=== PATIENT | female | born 1985 | race Caucasian/White ===

== ENCOUNTER 2022-01-23 13:04 | Inpatient (IN) ==
[2022-01-23 13:56] LABS: Basophils % 0.4 %; Bilirubin,Urine Negative (Negative); Blood,Urine Moderate (Negative); Clarity,Urine Clear (Clear); Color,Urine Yellow (Yellow); Eosinophils % 0.4 %; Glucose,Urine (UA) Normal (Normal); Hematocrit 41.1 % (35.3-44.9); Hemoglobin 13.6 g/dL (11.5-15.4); Immature Granulocytes % 0.3 % (0-4); Ketones,Urine 20 mg/dL (Negative); Leukocyte Esterase,Urine Negative (Negative); Lymphocytes # 2.1 K/mcL (0.6-4.6); Lymphocytes % 26.5 %; Mean Corpuscular HGB Conc 33.1 g/dL (31.6-35.5); Mean Corpuscular Hemoglobin 28.7 pg (28.0-33.3); Mean Corpuscular Volume 86.7 fL (83.0-100.0); Mean Platelet Volume 9.9 fL (9.4-12.4); Monocytes # 0.6 K/mcL (0.0-1.3); Mucus,Urine Few per lpf (None-Few); Neutrophils # 5.1 K/mcL (1.6-8.9); Nitrite,Urine Negative (Negative); Platelet Count 337 K/mcL (140-400); Protein,Urine Trace mg/dL (Neg-Trace); Red Blood Count 4.74 M/mcL (3.82-4.97); Red Cell Distribution Width 13.9 % (11.5-14.5); Segmented Neutrophils % 64.4 %; Specific Gravity,Urine 1.026 (1.010-1.025); Squamous Epithelial Cell,Urine Moderate per hpf (None-Few); Urobilinogen,Urine Normal (Normal); WBC,Urine 0-3 per hpf (0-3); White Blood Count 7.9 K/mcL (4.3-11.1)
[2022-01-23 14:09] LABS: Amphetamine Screen,Urine Negative ng/mL (Cutoff=1000); Barbiturate Screen,Urine Negative ng/mL (Cutoff=200); Benzodiazepines Screen,Urine Negative ng/mL (Cutoff=200); Cannabinoid Screen,Urine Positive ng/mL (Cutoff = 50); Cocaine Screen,Urine Negative ng/mL (Cutoff= 300); Opiate Screen,Urine Negative ng/mL (Cutoff=300); Phencyclidine Screen,Urine Negative ng/mL (Cutoff=25)
[2022-01-23 14:14] LABS: Acetaminophen < 10 mcg/mL (10-20); BUN/Creatinine Ratio 12 (6-26); Blood Urea Nitrogen 11 mg/dL (6-20); Calcium 9.5 mg/dL (8.6-10.3); Carbon Dioxide 25 mEq/L (23-29); Chloride 105 mEq/L (98-107); Ethanol < 10 mg/dL (Less than 10); Glucose 101 mg/dL (70-105); Osmolality,Calculated 286 (280-300); Potassium 3.6 mEq/L (3.5-5.1); Salicylate < 2.5 mg/dL (15.0-30.0); Sodium 138 mEq/L (136-145); eGFR For African Americans > 60 (> 60); eGFR For Non-African Americans > 60 (> 60)
[2022-01-23 18:30] LABS: Influenza A PCR Negative (Negative); Influenza B PCR Negative (Negative); Resp. Syncytial Virus PCR Negative (Negative)
[2022-01-23 18:37] LABS: SARS-CoV-2 by PCR (In House) Negative (Negative)
[2022-01-23] MEDS ORDERED: hydrOXYzine pamoate 25 MG CAPSULE PO ONE (18:45)
[2022-01-23] MEDS ORDERED: Haloperidol Lactate 5 MG/ML VIAL IM PRN (18:50)
[2022-01-23] MEDS ORDERED: haloperidoL 5 MG TABLET PO PRN (18:50)
[2022-01-23] MEDS ORDERED: *HR* LORazepam 1 MG TABLET PO PRN (18:50)
[2022-01-23] MEDS ORDERED: Ibuprofen 400 MG TABLET PO PRN (18:50)
[2022-01-23] MEDS ORDERED: Acetaminophen 325 MG TABLET PO PRN (18:50)
[2022-01-23] MEDS ORDERED: *HR* LORazepam 2 MG/ML VIAL IM PRN (18:50)
[2022-01-24] MEDS ORDERED: MOM Conc 10 ML UD.LIQ PO PRN (11:08)
[2022-01-24] MEDS ORDERED: Mag Hydrox/Al Hydrox/Simeth 30 ML UDC PO PRN (11:08)
[2022-01-24] MEDS ORDERED: *HR* LORazepam 1 MG TABLET PO PRN (11:48)
[2022-01-24] MEDS ORDERED: Fluticasone Propionate Nasal 50 MCG/SPRAY BOTTLE NS PRN (11:48)
[2022-01-24] MEDS ORDERED: ARIPiprazole 2 MG TABLET PO SCH (12:00)
[2022-01-24] MEDS: FLUoxetine 20 MG CAPSULE PO SCH (12:44)
[2022-01-24] MEDS: ARIPiprazole 2 MG TABLET PO SCH (12:46)
[2022-01-24] MEDS: Loratadine 10 MG TABLET PO SCH (12:46)
[2022-01-24] MEDS: Multivit/Ca/Min/Fe/FA 1 TAB TABLET PO SCH (12:46)
[2022-01-24] MEDS: Cholecalciferol (D-3) 1,000 UNIT (25MCG) TABLET PO SCH (12:47)
[2022-01-24] MEDS ORDERED: Rizatriptan Benzoate 5 MG Tablet PO PRN (12:53)
[2022-01-24] MEDS: hydrOXYzine pamoate 25 MG CAPSULE PO PRN ×2 (14:24→20:18)
[2022-01-24 14:50] LABS: Bilirubin,Urine Negative (Negative); Blood,Urine Large (Negative); Clarity,Urine Turbid (Clear); Color,Urine Yellow (Yellow); Glucose,Urine (UA) Normal (Normal); Ketones,Urine 10 mg/dL (Negative); Leukocyte Esterase,Urine Moderate (Negative); Mucus,Urine Moderate per lpf (None-Few); Nitrite,Urine Negative (Negative); Protein,Urine 50 mg/dL (Neg-Trace); RBC,Urine TNTC per hpf (0-3); Specific Gravity,Urine > 1.030 (1.010-1.025); Squamous Epithelial Cell,Urine Few per hpf (None-Few); WBC,Urine 30-50 per hpf (0-3)
[2022-01-24] MEDS: traZODone 50 MG TABLET PO PRN (20:18)
[2022-01-25] MEDS: Topiramate 25 MG TABLET PO SCH (08:37)
[2022-01-25] MEDS: ARIPiprazole 2 MG TABLET PO SCH (08:38)
[2022-01-25] MEDS: FLUoxetine 20 MG CAPSULE PO SCH (08:38)
[2022-01-25] MEDS: Loratadine 10 MG TABLET PO SCH (08:38)
[2022-01-25] MEDS: Multivit/Ca/Min/Fe/FA 1 TAB TABLET PO SCH (08:38)
[2022-01-25] MEDS: Cholecalciferol (D-3) 1,000 UNIT (25MCG) TABLET PO SCH (08:38)
[2022-01-25] MEDS: hydrOXYzine pamoate 25 MG CAPSULE PO PRN (18:59)
[2022-01-25] MEDS: traZODone 50 MG TABLET PO PRN (20:58)
[2022-01-26] MEDS: Multivit/Ca/Min/Fe/FA 1 TAB TABLET PO SCH (08:54)
[2022-01-26] MEDS: Cholecalciferol (D-3) 1,000 UNIT (25MCG) TABLET PO SCH (08:54)
[2022-01-26] MEDS: Loratadine 10 MG TABLET PO SCH (08:55)
[2022-01-26] MEDS: FLUoxetine 20 MG CAPSULE PO SCH (08:55)
[2022-01-26] MEDS: Topiramate 25 MG TABLET PO SCH (08:55)
[2022-01-26] MEDS: ARIPiprazole 5 MG TABLET PO SCH (09:05)
[2022-01-26] MEDS: ARIPiprazole 2 MG TABLET PO SCH (09:19)
[2022-01-26 10:30] LABS: Bilirubin,Urine Negative (Negative); Blood,Urine Negative (Negative); Clarity,Urine Clear (Clear); Color,Urine Light-Yellow (Yellow); Glucose,Urine (UA) Normal (Normal); Ketones,Urine Negative (Negative); Leukocyte Esterase,Urine Negative (Negative); Nitrite,Urine Negative (Negative); Protein,Urine Negative (Neg-Trace); Specific Gravity,Urine 1.024 (1.010-1.025); Urobilinogen,Urine Normal (Normal)
[2022-01-26] MEDS: traZODone 50 MG TABLET PO PRN (21:26)
[2022-01-26 21:34] VITALS: O2SAT 99
[2022-01-27] MEDS: Loratadine 10 MG TABLET PO SCH (08:36)
[2022-01-27] MEDS: Multivit/Ca/Min/Fe/FA 1 TAB TABLET PO SCH (08:37)
[2022-01-27] MEDS: FLUoxetine 20 MG CAPSULE PO SCH (08:37)
[2022-01-27] MEDS: Topiramate 25 MG TABLET PO SCH (08:37)
[2022-01-27] MEDS: Cholecalciferol (D-3) 1,000 UNIT (25MCG) TABLET PO SCH (08:37)
[2022-01-27] MEDS: ARIPiprazole 5 MG TABLET PO SCH (08:38)
[2022-01-27 09:11] VITALS: BP 97/66; PULSE 67; TEMP 96.8
== END 2022-01-27 15:20 | disposition home or self-care (01) | DRG 751 ==
LOC: EMEROOARM 13:04 → 1ANU 19:27
PROVIDERS: ADMIT Psychiatry & Neurology Psychiatry; ATTEND Psychiatry & Neurology Psychiatry